=== PATIENT | male | born 1980 | race Caucasian/White ===

== ENCOUNTER → 2017-04-26 | Outpatient (CLI) | payer BC | LOC: BMCIMAGING 12:58 | PROVIDERS: ATTEND Allergy & Immunology Allergy | DX: R07.89 Other chest pain (principal) ==

== ENCOUNTER → 2017-05-02 | Outpatient (CLI) | payer BC | LOC: BMCIMAGING 08:25 | PROVIDERS: ATTEND Allergy & Immunology Allergy | DX: R14.0 Abdominal distension (gaseous) (principal); R10.13 Epigastric pain; K76.0 Fatty (change of) liver, not elsewhere classified; Z87.442 Personal history of urinary calculi ==

== ENCOUNTER → 2017-05-25 | Outpatient (CLI) | payer BC ==
[~2017-05-25] MED LIST: IOPAMIDOL (ISOVUE 370) 100 ML BTL IV ONE
== END ==
LOC: FIMAGING 15:55
PROVIDERS: ATTEND Internal Medicine Cardiovascular Disease
DX: Z13.6 Encounter for screening for cardiovascular disorders (principal); R07.89 Other chest pain; R06.09 Other forms of dyspnea
CPT/HCPCS: Q9967